=== PATIENT | male | born 1980 | race Caucasian/White ===

== ENCOUNTER 2016-11-11 06:08 | Emergency (ER) | payer OTHER ==
[~2016-11-11] VITALS: Ht 198.1 cm; Wt 88.5 kg
[~2016-11-11 06:08] MED LIST: 'PARAFON FORTE500 M1 PO; AMOXICILLI250 MG/5 M PO; ATIVAN1 MG PO; B-1100 MG PO; BACTRIM DS 8001 TA1 PO; ERYTHROMYCIN5 MG/G2 OP; FLEXERIL10 MG PO; FLEXERIL5 MG PO; FOLIC ACID1 MG PO; HYDROCODONE BIT1 T11 PO; IBU-8800 MG PO; KEFLEX500 MG PO; LEXAPRO20 MG PO; MOTRIN800 MG PO; NAPROSYN500 MG PO; NKHM; NKHM PO; NORCO 325 MG-51 TAB PO; TRAMADOL HCL50 MG PO; TYLENOL PM 5001 CAP PO; TYLENOL W/CODE480 ML PO; ULTRAM50 MG PO; VICODIN 5/500 505 MG PO; VICODIN 500 MG-1 TAB PO; VISTARIL50 MG PO; VOLTAREN50 M1 PO
[2016-11-11] MEDS ORDERED: KLONOPIN1 M1 PO (06:12)
[2016-11-11 06:13] VITALS: BP 127/81
== END 2016-11-11 06:34 | disposition home or self-care (01) ==
LOC: ED 06:08
DX: S51.812A Laceration without foreign body of left forearm, initial encounter (principal); Z98.890 Other specified postprocedural states; X78.9XXA Intentional self-harm by unspecified sharp object, initial encounter; Y93.89 Activity, other specified; Y92.89 Other specified places as the place of occurrence of the external cause; Y99.9 Unspecified external cause status

== ENCOUNTER 2017-01-29 17:50 | Emergency (ER) | payer SELFPAY ==
[~2017-01-29] VITALS: Wt 74.8 kg
[~2017-01-29 17:50] MED LIST changes: +KLONOPIN1 M1 PO
[2017-01-29 17:57] VITALS: BP 136/68
[2017-01-29] MEDS ORDERED: NAPROSYN500 MG PO (19:28)
[2017-01-29] MEDS ORDERED: MEDROL DOSEPAK4 MG PO (19:39)
== END 2017-01-29 19:43 | disposition home or self-care (01) ==
LOC: ED 17:50
DX: S46.912A Strain of unspecified muscle, fascia and tendon at shoulder and upper arm level, left arm, initial encounter (principal); Z79.899 Other long term (current) drug therapy; W19.XXXA Unspecified fall, initial encounter; Y93.9 Activity, unspecified; Y92.9 Unspecified place or not applicable; Y99.9 Unspecified external cause status

== ENCOUNTER → 2020-05-14 | Outpatient (CLI) | payer BC ==
[~2020-05-14] MED LIST changes: +MEDROL DOSEPAK4 MG PO; +NORCO 5-325 TA1 EACH PO; +PROTONIX40 MG PO
== END | disposition home or self-care (01) ==
LOC: COVID19 11:16
PROVIDERS: ATTEND Internal Medicine
DX: Z20.828 Contact with and (suspected) exposure to other viral communicable diseases (principal)

== ENCOUNTER 2020-05-19 10:47 | Emergency (ER) | payer BC ==
[~2020-05-19] VITALS: Ht 195.5 cm; Wt 86.2 kg
[~2020-05-19 10:47] MED LIST changes: -NORCO 5-325 TA1 EACH PO
[2020-05-19 10:54] VITALS: BP 136/88
[2020-05-19] MEDS ORDERED: NORCO 5-325 TA1 EACH PO (12:13)
== END 2020-05-19 12:35 | disposition home or self-care (01) ==
LOC: ED 10:47
DX: S62.304A Unspecified fracture of fourth metacarpal bone, right hand, initial encounter for closed fracture (principal); S62.306A Unspecified fracture of fifth metacarpal bone, right hand, initial encounter for closed fracture; Z91.041 Radiographic dye allergy status; Z79.899 Other long term (current) drug therapy; X58.XXXA Exposure to other specified factors, initial encounter; Y93.89 Activity, other specified; Y92.89 Other specified places as the place of occurrence of the external cause; Y99.8 Other external cause status

== ENCOUNTER → 2020-05-26 | Outpatient (CLI) | payer BC ==
[~2020-05-26] MED LIST changes: +NORCO 5-325 TA1 EACH PO
== END | disposition home or self-care (01) ==
LOC: ORTHO 00:20
PROVIDERS: ATTEND Orthopaedic Surgery
DX: S62.304D Unspecified fracture of fourth metacarpal bone, right hand, subsequent encounter for fracture with routine healing (principal); S62.306D Unspecified fracture of fifth metacarpal bone, right hand, subsequent encounter for fracture with routine healing; X58.XXXD Exposure to other specified factors, subsequent encounter

== ENCOUNTER → 2020-06-02 | Outpatient (CLI) | payer BC | END | disposition home or self-care (01) | LOC: ORTHO 00:23 | PROVIDERS: ATTEND Orthopaedic Surgery | DX: S62.316D Displaced fracture of base of fifth metacarpal bone, right hand, subsequent encounter for fracture with routine healing (principal); X58.XXXD Exposure to other specified factors, subsequent encounter ==

== ENCOUNTER → 2020-06-14 | Outpatient (CLI) | payer BC | END | disposition home or self-care (01) | LOC: RAD 14:31 | PROVIDERS: ATTEND Nurse Practitioner | DX: S62.316D Displaced fracture of base of fifth metacarpal bone, right hand, subsequent encounter for fracture with routine healing (principal); S62.354D Nondisplaced fracture of shaft of fourth metacarpal bone, right hand, subsequent encounter for fracture with routine healing; X58.XXXD Exposure to other specified factors, subsequent encounter ==

== ENCOUNTER 2020-07-08 20:35 | Emergency (ER) | payer BC ==
[~2020-07-08] VITALS: Ht 195.5 cm; Wt 83.9 kg
[2020-07-08 20:39] VITALS: BP 154/96
[2020-07-08] MEDS ORDERED: MIRTAZAPINE30 M2 PO (20:40)
[2020-07-08] MEDS ORDERED: ATARAX,VISTARIL50 MG PO (20:40)
[2020-07-08] MEDS ORDERED: AMOXICILLIN500 M2 PO (21:29)
== END 2020-07-08 21:52 | disposition home or self-care (01) ==
LOC: ED 20:35
DX: K02.9 Dental caries, unspecified (principal); F17.200 Nicotine dependence, unspecified, uncomplicated; Z91.041 Radiographic dye allergy status; Z79.899 Other long term (current) drug therapy; Z98.890 Other specified postprocedural states; Z90.49 Acquired absence of other specified parts of digestive tract

== ENCOUNTER → 2020-07-26 | Outpatient (CLI) | payer BC ==
[~2020-07-26] MED LIST changes: +AMOXICILLIN500 M2 PO; +ATARAX,VISTARIL50 MG PO; +MIRTAZAPINE30 M2 PO
== END | disposition home or self-care (01) ==
LOC: COVID19 10:50
PROVIDERS: ATTEND Internal Medicine
DX: Z20.822 Contact with and (suspected) exposure to COVID-19 (principal)

== ENCOUNTER → 2020-08-20 | Outpatient (CLI) | payer BC | END | disposition home or self-care (01) | LOC: COVID19 13:05 | PROVIDERS: ATTEND Student in an Organized Health Care Education/Training Program | DX: U07.1 COVID-19 (principal) ==

== ENCOUNTER → 2020-09-17 | Outpatient (CLI) | payer BC | END | disposition home or self-care (01) | LOC: COVID19 14:00 | PROVIDERS: ATTEND Internal Medicine | DX: Z20.822 Contact with and (suspected) exposure to COVID-19 (principal) ==

== ENCOUNTER 2021-11-25 10:49 | Emergency (ER) | payer SELFPAY ==
[~2021-11-25] VITALS: Ht 195.5 cm; Wt 88.5 kg
[2021-11-25 10:56] VITALS: BP 141/91
[2021-11-25 12:19] LABS: BASO # 0.1 10*3/uL (0.0-0.1); BASO % 0.6 % (0.0-1.0); EOS # 0.1 10*3/uL (0.0-0.4); EOS % 0.8 % (1.0-4.0); HEMATOCRIT 45.2 % (42.0-52.0); LYMPH # 1.9 10*3/uL (1.3-4.4); LYMPH % 14.1 % (27.0-41.0); MEAN CELL VOLUME 85.3 fl (80.0-94.0); MEAN CORPUSCULAR HGB 27.7 pg (27.0-31.0); MEAN CORPUSCULAR HGB CONC 32.5 g/dl (33.0-37.0); MEAN PLATELET VOLUME 10.2 fl (9.6-12.3); MONO # 0.8 10*3/uL (0.1-1.0); NEUT # 10.7 10*3/uL (2.3-7.9); NEUT % 78.1 % (47.0-73.0); PLATELET COUNT AUTOMATED 320 10*3/uL (130-400); RED CELL DISTRI WIDTH 13.3 % (0-14.5); WHITE BLOOD COUNT 13.8 10*3/uL (4.8-10.8)
[2021-11-25 12:36] LABS: ALKALINE PHOSPHATASE 63 U/L (45-117); BUN 16 mg/dl (7-24); CHLORIDE 103 mmol/L (98-107); CREATININE 1.03 mg/dL (0.70-1.30); POTASSIUM 3.8 mmol/L (3.5-5.1); SGOT/AST 17 IU/L (3-35); SGPT/ALT 37 U/L (12-78); SODIUM 135 mmol/L (136-145); TOTAL PROTEIN 7.8 gm/dL (6.4-8.2)
[2021-11-25] MEDS ORDERED: PREDNISONE20 M1 PO (14:41)
[2021-11-25] MEDS ORDERED: KETOROLAC10 MG PO (14:41)
[2021-11-25] MEDS ORDERED: AMOXICILLIN500 M2 PO (15:00)
[2021-11-25] MEDS ORDERED: CYCLOBENZAPRINE5 M3 PO (15:00)
[2021-11-25] MEDS ORDERED: MEDROL DOSEPAK4 MG PO (15:00)
== END 2021-11-25 15:10 | disposition home or self-care (01) ==
LOC: ED 10:49
PROVIDERS: Physician Assistant
DX: K04.7 Periapical abscess without sinus (principal); M25.512 Pain in left shoulder; Z79.899 Other long term (current) drug therapy

== ENCOUNTER 2021-12-01 17:40 | Emergency (ER) | payer SELFPAY ==
[~2021-12-01] VITALS: Wt 88.5 kg
[~2021-12-01 17:40] MED LIST changes: +CYCLOBENZAPRINE5 M3 PO; +KETOROLAC10 MG PO; +PREDNISONE20 M1 PO
[2021-12-01 17:43] VITALS: BP 148/105
[2021-12-01 18:29] LABS: BASO # 0.1 10*3/uL (0.0-0.1); BASO % 0.6 % (0.0-1.0); EOS # 0.3 10*3/uL (0.0-0.4); EOS % 1.7 % (1.0-4.0); HEMATOCRIT 44.4 % (42.0-52.0); LYMPH # 4.4 10*3/uL (1.3-4.4); LYMPH % 22.7 % (27.0-41.0); MEAN CELL VOLUME 86.4 fl (80.0-94.0); MEAN CORPUSCULAR HGB 28.6 pg (27.0-31.0); MEAN CORPUSCULAR HGB CONC 33.1 g/dl (33.0-37.0); MEAN PLATELET VOLUME 9.9 fl (9.6-12.3); MONO # 1.4 10*3/uL (0.1-1.0); MONO % 7.4 % (3.0-9.0); NEUT # 12.9 10*3/uL (2.3-7.9); NEUT % 67.2 % (47.0-73.0); PLATELET COUNT AUTOMATED 330 10*3/uL (130-400); RED BLOOD COUNT 5.14 10*6/uL (4.50-5.90); RED CELL DISTRI WIDTH 13.6 % (0-14.5); WHITE BLOOD COUNT 19.2 10*3/uL (4.8-10.8)
[2021-12-01 18:41] LABS: ACT PARTIAL THROMBO TIME 28.4 SECONDS (20.0-32.1); INTERNATIONAL NORM RATIO 1.1 (2.0-3.5)
[2021-12-01 18:46] LABS: ALKALINE PHOSPHATASE 59 U/L (45-117); BUN 13 mg/dl (7-24); CHLORIDE 103 mmol/L (98-107); CREATININE 0.99 mg/dL (0.70-1.30); POTASSIUM 3.5 mmol/L (3.5-5.1); SGOT/AST 16 IU/L (3-35); SGPT/ALT 39 U/L (12-78); SODIUM 137 mmol/L (136-145); TOTAL PROTEIN 7.5 gm/dL (6.4-8.2)
== END 2021-12-01 22:19 | disposition home or self-care (01) ==
LOC: ED 17:40
PROVIDERS: Emergency Medicine
DX: R07.89 Other chest pain (principal); M62.838 Other muscle spasm; F41.1 Generalized anxiety disorder; Z79.899 Other long term (current) drug therapy

== ENCOUNTER 2022-04-10 23:41 | Emergency (ER) | payer SELFPAY ==
[~2022-04-10] VITALS: Ht 198.1 cm; Wt 93.0 kg
[2022-04-10 23:43] VITALS: BP 131/85
== END 2022-04-11 00:58 | disposition left against medical advice (07) ==
LOC: ED 23:41
DX: Z00.00 Encounter for general adult medical examination without abnormal findings (principal); F41.9 Anxiety disorder, unspecified; F17.200 Nicotine dependence, unspecified, uncomplicated; Z91.041 Radiographic dye allergy status; Z79.2 Long term (current) use of antibiotics; Z79.899 Other long term (current) drug therapy; Z98.890 Other specified postprocedural states

== ENCOUNTER 2022-12-14 13:29 | Emergency (ER) | payer OTHER ==
[~2022-12-14] VITALS: Ht 195.5 cm; Wt 94.8 kg
[2022-12-14 13:40] VITALS: BP 158/78
[2022-12-14 14:38] LABS: BASO # 0.1 10*3/uL (0.0-0.1); BASO % 0.7 % (0.0-1.0); EOS # 0.4 10*3/uL (0.0-0.4); EOS % 2.3 % (1.0-4.0); LYMPH # 2.7 10*3/uL (1.3-4.4); MEAN CELL VOLUME 89.8 fl (80.0-94.0); MEAN CORPUSCULAR HGB 28.5 pg (27.0-31.0); MEAN CORPUSCULAR HGB CONC 31.8 g/dl (33.0-37.0); MEAN PLATELET VOLUME 9.8 fl (9.6-12.3); MONO # 1.1 10*3/uL (0.1-1.0); MONO % 6.2 % (3.0-9.0); NEUT # 13.7 10*3/uL (2.3-7.9); NEUT % 75.5 % (47.0-73.0); PLATELET COUNT AUTOMATED 302 10*3/uL (130-400); RED BLOOD COUNT 5.01 10*6/uL (4.50-5.90); RED CELL DISTRI WIDTH 13.7 % (0-14.5); WHITE BLOOD COUNT 18.1 10*3/uL (4.8-10.8)
[2022-12-14 14:50] LABS: ACT PARTIAL THROMBO TIME 30.5 SECONDS (20.0-32.1)
[2022-12-14 15:01] LABS: ALKALINE PHOSPHATASE 60 U/L (46-116); BUN 12 mg/dl (9-23); CHLORIDE 101 mmol/L (98-107); LIPASE 40 U/L (12-53); POTASSIUM 3.9 mmol/L (3.4-5.1); SGPT/ALT 19 U/L (10-49); TOTAL PROTEIN 7.5 gm/dL (6.0-8.0)
[2022-12-14] MEDS ORDERED: CYCLOBENZAPRINE10 MG PO (17:21)
[2022-12-14] MEDS ORDERED: PREDNISONE50 MG PO (17:21)
== END 2022-12-14 17:39 | disposition home or self-care (01) ==
LOC: ED 13:29
PROVIDERS: Emergency Medicine
DX: S16.1XXA Strain of muscle, fascia and tendon at neck level, initial encounter (principal); S39.012A Strain of muscle, fascia and tendon of lower back, initial encounter; F41.9 Anxiety disorder, unspecified; R42 Dizziness and giddiness; R51.9 Headache, unspecified; M79.601 Pain in right arm; Z91.041 Radiographic dye allergy status; Z79.899 Other long term (current) drug therapy; Z98.890 Other specified postprocedural states; X58.XXXA Exposure to other specified factors, initial encounter; Y93.89 Activity, other specified; Y92.89 Other specified places as the place of occurrence of the external cause; Y99.8 Other external cause status

== ENCOUNTER → 2023-11-15 | Outpatient (CLI) | payer SELFPAY ==
[~2023-11-15] MED LIST changes: +CYCLOBENZAPRINE10 MG PO; +PREDNISONE50 MG PO
== END | disposition home or self-care (01) ==
LOC: RAD 09:50
PROVIDERS: ATTEND Nurse Practitioner Family
DX: R10.30 Lower abdominal pain, unspecified (principal); M54.50 Low back pain, unspecified

== ENCOUNTER 2023-12-10 07:10 | Emergency (ER) | payer SELFPAY ==
[~2023-12-10] VITALS: Ht 198.1 cm; Wt 92.1 kg
[2023-12-10 07:29] VITALS: BP 130/94
[2023-12-10] MEDS ORDERED: Ketorolac Tromethamine 30 MG/ML VIAL IM ONE (07:45)
[2023-12-10] MEDS ORDERED: METHOCARBAMOL750 M1 PO (10:12)
[2023-12-10] MEDS ORDERED: METHOCARBAMOL 500 MG TAB PO ONE (10:15)
== END 2023-12-10 10:47 | disposition home or self-care (01) ==
LOC: ED 07:10
DX: M54.50 Low back pain, unspecified (principal); F41.9 Anxiety disorder, unspecified; F10.10 Alcohol abuse, uncomplicated; F17.200 Nicotine dependence, unspecified, uncomplicated; Z90.49 Acquired absence of other specified parts of digestive tract; Z91.041 Radiographic dye allergy status; Z98.890 Other specified postprocedural states

== ENCOUNTER 2025-05-04 06:13 | Emergency (ER) | payer SELFPAY ==
[~2025-05-04] VITALS: Ht 198.1 cm; Wt 95.3 kg
[~2025-05-04 06:13] MED LIST changes: +METHOCARBAMOL750 M1 PO
[2025-05-04 06:35] VITALS: BP 141/99
[2025-05-04] MEDS ORDERED: METHOCARBAMOL 750 MG TAB PO ONE (06:40)
[2025-05-04] MEDS ORDERED: Dexamethasone Sodium Phospha 20 MG/5 ML VIAL IM ONE (06:40)
[2025-05-04] MEDS ORDERED: METHOCARBAMOL750 M1 PO (07:47)
== END 2025-05-04 08:11 | disposition home or self-care (01) ==
LOC: ED 06:13
DX: M54.50 Low back pain, unspecified (principal); G89.29 Other chronic pain; Z88.8 Allergy status to other drugs, medicaments and biological substances; Z79.899 Other long term (current) drug therapy; Z98.890 Other specified postprocedural states